=== PATIENT | female | born 1965 | race Hispanic/Latino ===

== ENCOUNTER 2020-11-06 14:01 | Outpatient (CLI) | payer OTHER | END 2020-11-06 14:02 | disposition home or self-care (01) | LOC: PF 14:01 | PROVIDERS: ATTEND Internal Medicine | DX: J44.9 Chronic obstructive pulmonary disease, unspecified (principal); I10 Essential (primary) hypertension; F32.9 Major depressive disorder, single episode, unspecified; F41.9 Anxiety disorder, unspecified; F40.240 Claustrophobia; G62.9 Polyneuropathy, unspecified; F40.10 Social phobia, unspecified | CPT/HCPCS: 94010; 94726; 94729 ==